=== PATIENT | male | born 1985 | race Caucasian/White ===

== ENCOUNTER 2016-12-31 16:43 | Emergency (ER) | payer SELFPAY ==
[2016-12-31] MEDS ORDERED: IBUPROFEN 800 MG TABLET PO ONE (17:15)
--- NOTE | 2016-12-31 17:15 | ER Document Report ---
ED Medical Screen (RME) - General Stated Complaint: BACK PAIN Notes: onset was on week ago, got caught while standing up and hurt his low back. At home he has not been taking any medication. using ice. able to bear weight. Denies any urinary/stool incontinence, saddle anesthesia. I have greeted and performed a rapid initial assessment of this patient. A comprehensive ED assessment and evaluation of the patient, analysis of test results and completion of the medical decision making process will be conducted by additional ED providers. TRAVEL OUTSIDE OF THE [place] IN LAST 30 DAYS: No - Related Data Allergies/Adverse Reactions: acetaminophen [From Vicodin] Adverse Reaction (Intermediate, Verified 12/31/16 17:12) hydrocodone bitartrate [From Vicodin] Adverse Reaction (Intermediate, Verified 12/31/16 17:12) Past Medical History - Immunizations Hx Diphtheria, Pertussis, Tetanus Vaccination: Yes Physical Exam - Vital signs Vitals: Pulse Resp BP Pulse Ox 93 18 119/67 98 12/31/16 16:56 12/31/16 16:56 12/31/16 16:56 12/31/16 16:56 Course - Vital Signs Vital signs: Temp Pulse Resp BP Pulse Ox 93 18 119/67 98 12/31/16 16:56 12/31/16 16:56 12/31/16 16:56 12/31/16 16:56
[2016-12-31] MEDS ORDERED: DEXAMETHASONE SOD PHOS INJ 10 MG/1 ML VIAL IM ONE (17:54)
--- NOTE | 2016-12-31 18:10 | ER Document Report ---
ED Neck/Back Problem - General Chief Complaint: Back Pain Stated Complaint: BACK PAIN Time seen by provider: 17:50 Mode of Arrival: Ambulatory Information source: Patient Notes: 31-year-old male presents to ED for back pain onset a week ago. He states he actually has had back pain since he was 16 years old this new episode started about a week ago worse yesterday and is much worse today. States he is not able to get up out of the bed yesterday and go to work and has not been taken any medication. He states she's been using ice and has not done any Exercises. He denies any loss of control of bowel or bladder. Denies any loss control of muscles, denies any loss of sensation. TRAVEL OUTSIDE OF THE [place] IN LAST 30 DAYS: No - HPI Patient complains to provider of: Pain, Upper back, Lower back Onset: Other - Chronic Onset: Chronic Timing: Worse Quality of pain: Sharp Severity: Severe Pain Level: 5 Recent injury: No Associated symptoms: Lower back pain, Upper back pain. denies: Constipation, Incontinence, Motor loss, Numbness/tingling, Radiation to leg, Sensory loss, Sweaty, Unable to urinate Exacerbated by: Movement of trunk, Sitting position Relieved by: Nothing Similar symptoms previously: Yes Recently seen / treated by doctor: No - Related Data Allergies/Adverse Reactions: acetaminophen [From Vicodin] Adverse Reaction (Intermediate, Verified 12/31/16 17:12) hydrocodone bitartrate [From Vicodin] Adverse Reaction (Intermediate, Verified 12/31/16 17:12) Past Medical History - General Information source: Patient - Social History Smoking Status: Current Every Day Smoker Cigarette use (# per day): Yes - half pack per day Chew tobacco use (# tins/day): No Smoking Education Provided: Yes - less than 2 minutes Frequency of alcohol use: Social Drug Abuse: Marijuana Occupation: production maintenance mechanic Lives with: Family, Friend Family History: Arthritis, CAD, COPD, DM, Hyperlipidemia, Hypertension, Malignancy, Thyroid Disfunction Patient has suicidal ideation: No Patient has homicidal ideation: No - Past Medical History Cardiac Medical History: Reports: None Pulmonary Medical History: Reports: None EENT Medical History: Reports: None Neurological Medical History: Reports: None Endocrine Medical History: Reports: None Renal/ Medical History: Reports: None Malignancy Medical History: Reports None GI Medical History: Reports: None Musculoskeltal Medical History: Reports Hx Arthritis, Reports Hx Musculoskeletal Trauma Skin Medical History: Reports None Psychiatric Medical History: Reports: None Traumatic Medical History: Reports: None Infectious Medical History: Reports: None Surgical Hx: Negative Past Surgical History: Reports: None - Immunizations Immunizations up to date: Yes Hx Diphtheria, Pertussis, Tetanus Vaccination: Yes Review of Systems - Review of Systems Constitutional: No symptoms reported EENT: No symptoms reported Cardiovascular: No symptoms reported Respiratory: No symptoms reported Gastrointestinal: No symptoms reported Genitourinary: No symptoms reported Male Genitourinary: No symptoms reported Musculoskeletal: Back pain, Muscle pain, Muscle stiffness Skin: No symptoms reported Hematologic/Lymphatic: No symptoms reported Neurological/Psychological: No symptoms reported -: Yes All other systems reviewed and negative Physical Exam - Vital signs Vitals: Pulse Resp BP Pulse Ox 93 18 119/67 98 12/31/16 16:56 12/31/16 16:56 12/31/16 16:56 12/31/16 16:56 Interpretation: Normal - General General appearance: Appears well, Alert - HEENT Head: Normocephalic, Atraumatic Eyes: Normal Pupils: PERRL - Respiratory Respiratory status: No respiratory distress Chest status: Nontender Breath sounds: Normal Chest palpation: Normal - Cardiovascular Rhythm: Regular Heart sounds: Normal auscultation Murmur: No - Abdominal Inspection: Normal Distension: No distension Bowel sounds: Normal Tenderness: Nontender Organomegaly: No organomegaly - Back Back: Normal, Tender, Vertebra tenderness - Tenderness from about breast line down to waist on back bilaterally to include spine. No: Deformity/step-off, CVA tenderness, Scars, Scoliosis, Wounds, Other - Extremities General upper extremity: Normal inspection, Nontender, Normal color, Normal ROM , Normal temperature General lower extremity: Normal inspection, Nontender, Normal color, Normal ROM , Normal temperature, Normal weight bearing. No: April's sign - Neurological Neuro grossly intact: Yes Cognition: Normal Orientation: AAOx4 [place] Coma Scale Eye Opening: Spontaneous [place] Coma Scale Verbal: Oriented [place] Coma Scale Motor: Obeys Commands [place] Coma Scale Total: 15 Speech: Normal Cranial nerves: Normal Cerebellar coordination: Normal Motor strength normal: LUE, RUE, LLE, RLE Additional motor exam normals: Equal physicians assistant Babinski reflex: Normal (flexor plantar) Sensory: Normal - Psychological Associated symptoms: Normal affect, Normal mood - Skin Skin Temperature: Warm Skin Moisture: Dry Skin Color: Normal Course - Re-evaluation Re-evalutation: 12/31/16 19:22 Discussed x-rays with patient. Written reports given to patient to follow-up with his primary doctor. Patient was treated with ibuprofen and Decadron in the emergency room and discharged home with prescription for ibuprofen and muscle relaxers. - Vital Signs Vital signs: Temp Pulse Resp BP Pulse Ox 93 18 119/67 98 12/31/16 16:56 12/31/16 16:56 12/31/16 16:56 12/31/16 16:56 - Diagnostic Test Radiology reviewed: Image reviewed, Reports reviewed Discharge - Discharge Clinical Impression: Upper back pain Lower back pain Qualifiers: Chronicity: unspecified Back pain laterality: bilateral Sciatica presence: without sciatica Qualified Code(s): M54.5 - Low back pain Condition: Stable Disposition: HOME, SELF-CARE Instructions: Stretching Exercises for the Back ([facility]), Exercise Program for the Shoulder ([facility]), Range of Motion Exercises ([facility]), Family Physicians / Practices Additional Instructions: LOW BACK PAIN: Three out of every four people will have an episode of disabling back pain during their lifetime. Most commonly the pain is due to straining of the muscles and ligaments in the low back. Usual treatment includes: (1) Rest on a firm surface. Avoid lying on your stomach. (2) Ice pack the painful area. After a few days, gentle heat may be used intermittently to relax the area, or ice packs can be continued. (3) Medication may be needed -- muscle relaxers and antiinflammatory medicines are commonly used. (4) As the back improves, exercises are prescribed to strengthen the back and abdominal muscles. Your doctor will advise you on the proper care for your back at each stage in your recovery. You may be better in a few days -- or healing may take several weeks. If new symptoms of a "herniated disc" (radiation of pain, numbness, or tingling down the back of the leg or weakness in the leg) occur, you should be re-examined. Further testing may be necessary. Upper Back Strain You have a strain of the upper back. "Strain" means stretching and partial tearing of muscle and tendon fibers. This can happen suddenly, such as when lifting, or can be due to chronic muscle tension. X-rays don't show back strain. X-rays are only taken if there's reason to suspect a problem in the bones. At first, you should cold-pack the painful area and rest. We often prescribe antiinflammatory medicine. If you are having muscle spasms, a muscle relaxer can help. As you begin to improve, it's important to strengthen and stretch the muscles. Your doctor will advise you on the proper care for your back at each stage in your recovery. You may be better in a few days -- or healing may take several weeks. If new symptoms develop ( such as radiation of pain, numbness, weakness, or tingling) occur, you should be re-examined. Further testing may be necessary. Ibuprofen Ibuprofen is an excellent, safe drug for pain control. In addition, it has potent antiinflammatory effects which are beneficial, especially in the treatment of injuries, arthritis, or tendonitis. It's best to take ibuprofen with food. Persons with ulcer disease or allergy to aspirin should notify their physician of this before taking ibuprofen. Take the medication exactly as prescribed. Don't take additional doses unless instructed to do so by your doctor. If you develop wheezing, shortness of breath, hives, faintness, stomach pain, vomiting, or dark black stools, return for re-evaluation at once. MUSCLE RELAXERS: Muscle relaxing medications are usually prescribed for acute muscle spasm or injury to the neck and back. They are often combined with antiinflammatory pain medication for increased relief. You may stop the muscle relaxer when the pain and stiffness have improved. Start the medication again if spasms recur. Muscle relaxers may cause drowsiness, especially with the first dose. Do not operate machinery or drive while under the effects of the medication. Most muscle relaxers last up to 24 hours. Do not combine the medication with alcohol. ICE PACKS: Apply ice packs frequently against the painful area. Many different schedules are recommended, such as "20 minutes on, 20 minutes off" or "one hour ice, two hours rest." If you need to work, you may need to go longer between ice treatments. You should plan to have the area ice packed AT LEAST one fourth of the time. The ice should be applied over the wrap, tape, or splint, or over a layer of cloth -- not directly against the skin. Some ice bags have a built-in cloth and can be put directly on the skin. WARM PACKS: After approximately two days, apply gentle heat (such as a heating pad or hot water bottle) for about 20 to 30 minutes about every two hours -- at least four times daily. Warmth and elevation will help you make a more rapid recovery , and will ease the pain considerably. Do not use HOT heat, and never apply heat for longer than 30 minutes. The continuous heat can invisibly damage skin and muscles -- even when no burn is seen on the surface. Damaged muscles can make you MORE sore. FOLLOW-UP CARE: If you have been referred to a physician for follow-up care, call the physician s office for an appointment as you were instructed or within the next two days. If you experience worsening or a significant change in your symptoms, notify the physician immediately or return to the Emergency Department at any time for re-evaluation. Prescriptions: Ibuprofen 800 mg PO Q8HP PRN #20 tablet PRN Reason: Cyclobenzaprine HCl [Flexeril 10 mg Tablet] 10 mg PO TIDP PRN #15 tab PRN Reason: Forms: Return to Work, Smoking Cessation Education
[2016-12-31 20:04] VITALS: BP 138/88
== END 2016-12-31 19:24 | disposition home or self-care (01) ==
LOC: ER 16:43
DX: G89.29 Other chronic pain (principal); M54.5 Low back pain; M54.89 Other dorsalgia; F17.210 Nicotine dependence, cigarettes, uncomplicated; Z71.6 Tobacco abuse counseling
CPT/HCPCS: 99283; 96372; 72110; 72070; J1100